=== PATIENT | male | born 1985 | race Two or more races ===

== ENCOUNTER 2023-08-24 15:46 | Inpatient (IN) | payer SELFPAY ==
[2023-08-24 15:51] VITALS: BMI 34.2
[2023-08-24] MEDS ORDERED: ACETAMINOPHEN INJECTION 100 ML IVPB ONE (16:42)
[2023-08-24 16:58] LABS: BASO % 0.9 % (0-2.0); EOS % 2.1 % (0-4.5); HEMATOCRIT 28.9 % (35.4-49); HEMOGLOBIN 8.9 GM/dL (11.7-16.9); LYMPH % 24.8 % (8-40); MCHC 30.9 g/dl (32.0-35.9); MEAN CELL VOLUME 63.8 fl (80-96); MEAN PLT VOLUME 7.9 fl (7.5-11.1); MONO % 7.7 % (3.8-10.2); NEUT % 64.5 % (42.8-82.8); PLATELET COUNT 344 10^3/uL (134-434); RBC 4.53 M/mm3 (4.00-5.60); RDW 18.5 % (11.9-15.9); WHITE BLOOD COUNT 10.2 K/mm3 (4.0-10.0)
[2023-08-24 16:59] LABS: MCH 19.7 pg (25.7-33.7)
[2023-08-24] MEDS: ACETAMINOPHEN 1000 MG/100 ML BAG IVPB ONE (17:04)
[2023-08-24 17:06] LABS: INR 1.01 (0.83-1.09); PROTHROMBIN TIME (PATIENT) 11.6 SEC (9.7-13.0)
[2023-08-24 17:09] LABS: ACTIVATED PTT 30.7 SECONDS (25.2-36.5)
[2023-08-24 17:18] LABS: POTASSIUM 4.1 mmol/L (3.5-5.1)
[2023-08-24 17:20] LABS: BLOOD UREA NITROGEN 9.5 mg/dL (7-18); CALCIUM 8.9 mg/dL (8.5-10.1)
[2023-08-24 17:21] LABS: ALBUMIN 3.7 g/dl (3.4-5.0)
[2023-08-24 17:24] LABS: CREATININE 0.9 mg/dL (0.55-1.3)
[2023-08-24 17:25] LABS: BILIRUBIN,TOTAL 0.4 mg/dL (0.2-1); TOT PROT 7.9 g/dl (6.4-8.2)
[2023-08-24 17:27] LABS: ANISOCYTOSIS 2+; MACROCYTOSIS 0; TARGET CELLS 1+
[2023-08-25 01:57] LABS: HEMATOCRIT 28.4 % (35.4-49); HEMOGLOBIN 8.9 GM/dL (11.7-16.9); MCHC 31.3 g/dl (32.0-35.9); MEAN CELL VOLUME 63.1 fl (80-96); PLATELET COUNT 369 10^3/uL (134-434); RDW 18.5 % (11.9-15.9); WHITE BLOOD COUNT 10.3 K/mm3 (4.0-10.0)
[2023-08-25 01:59] LABS: MCH 19.8 pg (25.7-33.7)
[2023-08-25 05:42] LABS: BASO % 0.8 % (0-2.0); EOS % 2.7 % (0-4.5); HEMATOCRIT 27.8 % (35.4-49); HEMOGLOBIN 8.4 GM/dL (11.7-16.9); LYMPH % 28.7 % (8-40); MCHC 30.4 g/dl (32.0-35.9); MEAN CELL VOLUME 64.4 fl (80-96); MEAN PLT VOLUME 7.9 fl (7.5-11.1); MONO % 7.7 % (3.8-10.2); NEUT % 60.1 % (42.8-82.8); PLATELET COUNT 312 10^3/uL (134-434); RBC 4.32 M/mm3 (4.00-5.60); RDW 18.6 % (11.9-15.9); WHITE BLOOD COUNT 9.4 K/mm3 (4.0-10.0)
[2023-08-25 05:43] LABS: MCH 19.5 pg (25.7-33.7)
[2023-08-25 06:13] LABS: ALBUMIN 3.6 g/dl (3.4-5.0); BLOOD UREA NITROGEN 10.8 mg/dL (7-18); CALCIUM 8.7 mg/dL (8.5-10.1); MAGNESIUM 2.1 mg/dL (1.8-2.4)
[2023-08-25 06:14] LABS: CHOLESTEROL 120 mg/dL (50-200)
[2023-08-25 06:15] LABS: LDL CHOLESTEROL (ONLY SJRH) 62 mg/dL (5-100)
[2023-08-25 06:16] LABS: PHOSPHOROUS 3.9 mg/dL (2.5-4.9)
[2023-08-25 06:17] LABS: BILIRUBIN,TOTAL 0.4 mg/dL (0.2-1); HDL CHOLESTEROL 22 mg/dL (40-60); TOT PROT 7.8 g/dl (6.4-8.2)
[2023-08-25 06:19] LABS: POTASSIUM 4.2 mmol/L (3.5-5.1)
[2023-08-25 07:02] VITALS: RESP 18
[2023-08-25 09:22] VITALS: TEMP 98.5
[2023-08-25 09:39] LABS: PH,URINE 5.5 (5.0-8.0); URINE APPEARANCE CLEAR; URINE BILIRUBIN NEGATIVE (NEGATIVE); URINE COLOR YELLOW; URINE GLUCOSE (UA) NEGATIVE (NEGATIVE); URINE KETONE NEGATIVE (NEGATIVE); URINE LEUK ESTERASE NEGATIVE (NEGATIVE); URINE NITRITE NEGATIVE (NEGATIVE); URINE PROTEIN NEGATIVE (NEGATIVE); URINE UROBILINOGEN 0.2 mg/dL (0.2-1.0)
[2023-08-25] MEDS: amLODIPine BESYLATE 5 MG TABLET (FP) PO SCH (12:10)
[2023-08-25 14:54] VITALS: BP 144/91; PULSE 75
[2023-08-25] MEDS: IRON SUCROSE INJECTION 200 MG in SODIUM CHLORIDE 100 ML IVPB ONE (15:23)
[2023-08-26] MEDS ORDERED: PANTOPRAZOLE 40 MG TABLET PO SCH (10:00)
== END 2023-08-25 17:53 | disposition home or self-care (01) | DRG 199 ==
LOC: JER 15:46 → JERBED 19:01
PROVIDERS: ADMIT Internal Medicine; ATTEND Internal Medicine
DX: I16.0 Hypertensive urgency (principal); U07.1 COVID-19; D50.9 Iron deficiency anemia, unspecified; R07.89 Other chest pain; K64.9 Unspecified hemorrhoids; K62.5 Hemorrhage of anus and rectum; E78.5 Hyperlipidemia, unspecified
CPT/HCPCS: 0241U-QW; 36415; 71046-TC-FY; 74177-TC; 80053; 80061; 81003; 82272; 82728; 83010; 83540; 83550; 83615; 83735; 84100; 84436; 84443; 84466; 84484; 85025; 85027; 85045; 85610; 85730; 86850; 86900; 86901; 93005; 93010; 99285-25; J0131; J1756; Q9967